=== PATIENT | female | born 1950 | race Caucasian/White ===

== ENCOUNTER 2021-12-03 19:38 | Emergency (ER) | payer MEDICARE, OTHER | END 2021-12-03 21:24 | disposition home or self-care (01) | LOC: JP.ED 19:38 | DX: R13.11 Dysphagia, oral phase (principal); I10 Essential (primary) hypertension; E78.00 Pure hypercholesterolemia, unspecified; Z72.0 Tobacco use; Z88.0 Allergy status to penicillin | CPT/HCPCS: 99283 ==